=== PATIENT | male | born 1985 | race Two or more races ===

== ENCOUNTER → 2017-12-24 | Outpatient (CLI) | payer OTHER | END | disposition home or self-care (01) | LOC: LAB 07:01 | PROVIDERS: ATTEND Obstetrics & Gynecology Reproductive Endocrinology | DX: Z01.812 Encounter for preprocedural laboratory examination (principal); Z11.4 Encounter for screening for human immunodeficiency virus [HIV]; Z11.9 Encounter for screening for infectious and parasitic diseases, unspecified; Z11.59 Encounter for screening for other viral diseases | CPT/HCPCS: 36415; 86592; 86703; 86704; 86803; 87340 ==